=== PATIENT | male | born 1990 | race Caucasian/White ===

== ENCOUNTER 2019-02-14 21:45 | Emergency (ER) | payer OTHER ==
[~2019-02-14] VITALS: Ht 165.1 cm; Wt 68.0 kg
[2019-02-14 21:51] VITALS: BP 130/71
[2019-02-14] MEDS ORDERED: DAILY INHALER (21:55)
[2019-02-14] MEDS ORDERED: PROVENTIL HFA6.7 G1 (21:55)
[2019-02-14] MEDS ORDERED: PREDNISONE50 MG PO (23:11)
== END 2019-02-14 23:25 | disposition home or self-care (01) ==
LOC: M.ERS 21:45
DX: J45.901 Unspecified asthma with (acute) exacerbation (principal); F17.200 Nicotine dependence, unspecified, uncomplicated